=== PATIENT | female | born 1965 | race American Indian/Alaskan Native ===

== ENCOUNTER → 2020-09-05 | Outpatient (CLI) | payer OTHER | LOC: HYPER 08:31 | PROVIDERS: ATTEND Emergency Medicine Emergency Medical Services | DX: T24.231A Burn of second degree of right lower leg, initial encounter (principal); T24.211A Burn of second degree of right thigh, initial encounter; T31.0 Burns involving less than 10% of body surface; S80.921A Unspecified superficial injury of right lower leg, initial encounter; E66.01 Morbid (severe) obesity due to excess calories; M62.81 Muscle weakness (generalized); R26.9 Unspecified abnormalities of gait and mobility; Z79.84 Long term (current) use of oral hypoglycemic drugs; Z68.35 Body mass index [BMI] 35.0-35.9, adult; X08.8XXA Exposure to other specified smoke, fire and flames, initial encounter; Y93.89 Activity, other specified; Y92.89 Other specified places as the place of occurrence of the external cause; Y99.8 Other external cause status ==